=== PATIENT | female | born 1990 | race Caucasian/White ===

== ENCOUNTER 2017-02-20 14:33 | Outpatient (CLI) | payer OTHER | END 2017-02-20 15:08 | disposition home or self-care (01) | LOC: TRG 14:33 → EDSTATUS 14:34 → TRG 15:08 | PROVIDERS: ATTEND Obstetrics & Gynecology | DX: O36.0130 Maternal care for anti-D [Rh] antibodies, third trimester, not applicable or unspecified (principal); Z3A.30 30 weeks gestation of pregnancy | CPT/HCPCS: 86850; 86900; 86901; 96372; J2790 ==

== ENCOUNTER 2017-03-02 22:16 | Outpatient (CLI) | payer OTHER ==
[2017-03-02 23:03] VITALS: BP 96/55
[2017-03-02] MEDS ORDERED: LACTATED RINGERS 1,000 ML IV ONE (23:19)
[2017-03-03 00:03] LABS: Bilirubin,Urine SM (Negative); Blood,Urine NEG (Negative); Color,Urine Amber (Yellow); Mucus,Urine 3+ /HPF; Nitrite,Urine NEG (Negative)
[2017-03-03 00:09] LABS: Amphetamine Screen,Urine PRESUMPTIVE NEGATIVE; Benzodiazepines Screen,Urine PRESUMPTIVE NEGATIVE; Cocaine Screen,Urine PRESUMPTIVE NEGATIVE; Methadone Screen,Urine PRESUMPTIVE NEGATIVE; Opiate Screen,Urine PRESUMPTIVE NEGATIVE
[2017-03-03 00:20] LABS: Ictotest,Urine Negative (Negative)
[2017-03-03 00:23] LABS: Cannabinoid Screen,Urine PRESUMPTIVE POSITIVE
[2017-03-03] MEDS ORDERED: ROBITUSSIN PO PRN (00:30)
== END 2017-03-03 01:06 | disposition home or self-care (01) ==
LOC: TRG 22:16
PROVIDERS: ATTEND Obstetrics & Gynecology
DX: O26.893 Other specified pregnancy related conditions, third trimester (principal); J11.1 Influenza due to unidentified influenza virus with other respiratory manifestations; R10.9 Unspecified abdominal pain; Z3A.31 31 weeks gestation of pregnancy; Z87.891 Personal history of nicotine dependence
CPT/HCPCS: 59025; 80307; 81001; 96360; 96361; J7120

== ENCOUNTER 2017-05-01 19:19 | Inpatient (IN) | payer OTHER ==
[2017-05-01] MEDS ORDERED: PITOCin/NS 20 UNIT/1000ML DRIP 20,000 MILLIUNITS/1,000 ML BAG IV ONE (20:17)
--- NOTE | 2017-05-01 20:19 | History and Physical Report ---
History of Present Illness Date of examination: 05/01/17 Date of admission: 05/01/17 20:08 Chief complaint: Painful contractions History of present illness: 26-year-old at 40+ weeks' gestation presents in active labor, she is a [facility] patient. course complicated by Rh- status, she is GBS negative as well. Triage, patient is ~ 7 cm dilated with bulging membranes Past History Past Medical History: no pertinent history Past Surgical History: no surgical history FLORIST History: denies: chlamydia, gonorrhea, hepatitis B, hepatitis C, herpes, HIV , syphilis, trichomonas Social history: single, smoking, full code. denies: alcohol abuse, prescription drug abuse, IV drug use - Obstetrical History Expected Date of Delivery: 04/29/17 Actual Gestation: 40 Week(s) 2 Day(s) : 2 Para: 1 Medications and Allergies Allergies Allergy/AdvReac Type Severity Reaction Status Date / Time Penicillins AdvReac Unknown Verified 07/25/15 22:30 Home Medications Medication Instructions Recorded Confirmed Last Taken Type Pnv No.95/Ferrous Fum/Folic AC 1 each PO DAILY 07/25/15 05/01/17 1 Day Ago History [ [place]] ~04/30/17 Active Meds: Active Medications Parenteral Electrolytes (Normosol-R Ph 7.4) 1,000 mls @ 125 mls/hr IV DIRECT IRENE Review of Systems Constitutional: no fever, no chills, no anorexia, no fatigue, no weakness Eyes: no blurred vision, no discharge, no photophobia Cardiovascular: no chest pain, no lightheadedness, no shortness of breath, no dyspnea on exertion, no high blood pressure Respiratory: no cough, no shortness of breath, no dyspnea on exertion Gastrointestinal: no abdominal pain, no nausea, no vomiting, no heartburn, no indigestion Genitourinary: no vaginal bleeding, no vaginal discharge - Vital Signs Vital signs: Vital Signs Pulse BP Pulse Ox 95 H 119/71 96 05/01/17 19:34 05/01/17 19:34 05/01/17 19:34 Temp Pulse Resp BP Pulse Ox 98.4 F 81 20 119/71 98 05/01/17 19:37 05/01/17 20:04 05/01/17 19:37 05/01/17 19:34 05/01/17 20:04 - Physical Exam Cardiovascular: Regular rate, Normal S1, Normal S2 Abdomen: Positive: normal appearance, soft. Negative: tenderness, guarding Genitourinary (Female): Positive: normal external genitalia Uterus: Positive: enlarged (EFW ~ 3400). Negative: tender Extremities: Positive: normal - Obstetrical FHR: category 1 Cervical Dilatation: 7 Cervical Effacement Percentage: 100 station: -1 Results All other labs normal. Assessment and Plan A: 26-year-old at 40+2 weeks in active labor -Cat 1 tracing P: -Admit -Routine labs -Epidural prn -Expectant mgt -Anticipate - Patient Problems (1) 40 weeks gestation of Current Visit: Yes Status: Acute (2) Active labor at term Current Visit: Yes Status: Acute
[2017-05-01] MEDS ORDERED: ePHEDrine SULFATE IV PRN (20:20)
[2017-05-01] MEDS ORDERED: XYLOCAINE 2% INFILTRATI ONE (20:20)
[2017-05-01] MEDS ORDERED: MINERAL OIL PO PRN (20:20)
[2017-05-01] MEDS ORDERED: ZOFRAN IV PRN ×2 (20:20→21:23)
[2017-05-01] MEDS ORDERED: BRETHINE IVP PRN (20:20)
[2017-05-01] MEDS ORDERED: BRETHINE SUB-Q PRN (20:20)
[2017-05-01 20:23] LABS: Hematocrit 39.3 % (30.3-42.9); Mean Corpuscular HGB Conc 33 % (30-34); Mean Corpuscular Hemoglobin 30 pg (28-32); Mean Corpuscular Volume 91 fl (79-97); Platelet Count 180 K/mm3 (140-440); Red Blood Count 4.33 M/mm3 (3.65-5.03); Red Cell Distribution Width 14.4 % (13.2-15.2)
[2017-05-01] MEDS ORDERED: SUBLIMAZE IV PRN (20:30)
[2017-05-01] MEDS ORDERED: PITOCin/NS 30 UNIT/500ML 30 UNITS/500 ML BAG IV SCH ×2 (21:00)
[2017-05-01] MEDS ORDERED: NORMOSOL-R PH 7.4 1,000 ML IV SCH ×2 (21:00)
[2017-05-01] MEDS ORDERED: PITOCin/NS 20 UNIT/1000ML DRIP 20 UNITS/1,000 ML BAG IV SCH ×2 (21:00→22:00)
[2017-05-01] MEDS ORDERED: TUCKS PAD TP PRN (21:23)
[2017-05-01] MEDS ORDERED: PHENERGAN PO PRN (21:23)
[2017-05-01] MEDS ORDERED: DULCOLAX PR PRN (21:23)
[2017-05-01] MEDS ORDERED: BENADRYL PO PRN (21:23)
[2017-05-01] MEDS ORDERED: LANSINOH TP PRN (21:23)
[2017-05-01] MEDS ORDERED: MILK OF MAGNESIA PO PRN (21:23)
[2017-05-01] MEDS ORDERED: NORCO 5/325 PO PRN (21:23)
[2017-05-01] MEDS ORDERED: PHENERGAN PR PRN (21:23)
[2017-05-01] MEDS ORDERED: TYLENOL PO PRN (21:23)
--- NOTE | 2017-05-01 21:23 | Procedure Note ---
OB Delivery Note - Delivery Date of Delivery: 05/01/17 Surgeon: RAJINDER JUAREZ Estimated blood loss: 200cc - Vaginal Delivery presentation: vertex Delivery position: OA Intrapartum events: meconium, precipitous labor- <3hr Delivery induction: none Delivery monitor: external FHT, external uterine Route of delivery: Delivery placenta: spontaneous Delivery cord: 3 umbilical vessels Episiotomy: none Delivery laceration: other (bilateral periurethral not bleeding and not repaired ) Anesthesia: intravenous - Infant A at 1 minute: 8 at 5 minutes: 9 Infant Gender: Female (time of delivery 21:05, infant weight 5 lbs. 6 oz. or 2428 grams)
[2017-05-01] MEDS ORDERED: SENOKOT S PO SCH (22:00)
[2017-05-01] MEDS ORDERED: FEOSOL PO SCH (22:00)
[2017-05-01] MEDS ORDERED: COLACE PO SCH (22:00)
[2017-05-01] MEDS ORDERED: SODIUM CHLORIDE FLUSH SYRINGE 10 ML IV PRN (22:00)
[2017-05-01] MEDS: MOTRIN PO SCH (23:01)
[2017-05-02] MEDS: MOTRIN PO SCH ×3 (05:55→17:12)
[2017-05-02] MEDS ORDERED: BOOSTRIX IM ONE (06:00)
--- NOTE | 2017-05-02 09:50 | Progress Note ---
Assessment and Plan A: day 1, Stable and bottlefeeding P: Routine care Plan discharge tonight pending discharge Subjective - Subjective Date of service: 05/02/17 Principal diagnosis: Spontaneous labor, Patient reports: appetite normal, voiding normally, pain well controlled, flatus , ambulating normally [place]: doing well, nursing well (and bottlefeeding) Objective - Vital Signs Latest vital signs: Vital Signs Temp Pulse Resp BP BP Pulse Ox 05/02/17 08:49 98.6 F 67 18 97/57 98 05/02/17 04:00 98.6 F 77 16 102/77 05/02/17 00:00 98.6 F 68 16 114/78 05/01/17 22:35 98.7 F 80 16 107/71 104/71 05/01/17 22:19 80 95 05/01/17 22:17 71 118/76 05/01/17 22:15 68 20 108/75 05/01/17 22:14 74 108/75 97 05/01/17 22:09 84 99 05/01/17 22:04 82 97 05/01/17 22:02 86 20 114/81 114/81 05/01/17 21:59 84 98 05/01/17 21:54 82 99 05/01/17 21:50 80 86 05/01/17 21:49 82 97 05/01/17 21:44 86 97 05/01/17 21:39 84 92 05/01/17 21:35 99 H 92 05/01/17 21:34 98 H 96 05/01/17 21:32 68 20 104/72 104/72 95 05/01/17 21:29 90 97 05/01/17 21:24 80 98 05/01/17 21:19 92 H 98 05/01/17 21:17 98.1 F 90 20 121/64 121/64 99 05/01/17 21:14 110 H 98 05/01/17 20:04 81 98 05/01/17 20:03 94 H 90 05/01/17 19:59 95 H 98 05/01/17 19:55 100 H 94 05/01/17 19:54 100 H 95 05/01/17 19:49 92 H 99 05/01/17 19:44 85 100 05/01/17 19:43 91 H 92 05/01/17 19:39 100 H 99 05/01/17 19:37 98.4 F 78 20 05/01/17 19:34 95 H 119/71 96 Intake and Output 05/01/17 05/02/17 05/02/17 23:59 07:59 15:59 Intake Total 120 Output Total 600 250 Balance -600 -250 120 Intake: Oral 120 Output: Urine 600 250 Void 600 250 Other: Total, Intake Amount 120 Total, Output Amount 600 250 # Voids Void 1 1 Weight 59.421 kg Estimated Blood Loss 200 - Exam Breasts: Present: normal Cardiovascular: Present: Regular rate Lungs: Present: Clear to auscultation Abdomen: Present: normal appearance, soft, normal bowel sounds Vulva: both: normal Uterus: Present: normal, firm, fundal height at umbilicus Extremities: Present: normal Deep Tendon Reflex Grade: Normal +2 - Labs Labs: Abnormal lab results 05/01/17 Range/Units 19:50 WBC 12.7 H (4.5-11.0) K/mm3
--- NOTE | 2017-05-02 09:54 | Discharge Summary ---
Providers - Providers Date of Admission: 05/01/17 20:08 Date of discharge: 05/02/17 Attending physician: VADIM RO MD Primary care physician: VADIM RO MD Hospitalization Reason for admission: active labor, IUP at term Delivery: Episiotomy: none Laceration: other (bilateral periurethral lacerations, hemostatic, not repaired. ) Other procedures: none complications: none Discharge diagnosis: IUP at term delivered baby: female (5#6) Condition at discharge: Good Disposition: DC-01 TO HOME OR SELFCARE Plan - Discharge Medications Prescriptions: HYDROcodone/APAP 5-325 [Leoti 5/325] 1 each PO Q6HR PRN #7 tablet PRN Reason: Pain Ibuprofen [Motrin 600 MG tab] 600 mg PO Q8H PRN #30 tablet PRN Reason: Pain Multivitamin with Iron [Multivitamins with Iron] 1 each PO DAILY #30 tablet - Provider Discharge Summary Activity: routine, no sex for 6 weeks, no heavy lifting 4 weeks, no strenuous exercise Diet: routine Instructions: routine Additional instructions: [] Smoking cessation referral if applicable(refer to patient education folder for contact #) [] Refer to [facility] Booklet Call your doctor immediately for: * Fever > 100.5 * Heavy vaginal bleeding ( >1 pad per hour) * Severe persistent headache * Shortness of breath * Reddened, hot, painful area to leg or breast * Drainage or odor from incision. * Keep incision clean and dry at all times and follow doctor's instructions regarding bathing/showering - Follow up plan Follow up: SADIE RODRIGEZ CNM [Advanced Practice Nurse] - 6 Weeks
[2017-05-02] MEDS ORDERED: PRENATAL VITAMIN PO SCH (10:00)
[2017-05-02 10:07] LABS: Hematocrit 35.2 % (30.3-42.9); Hemoglobin 11.6 gm/dl (10.1-14.3)
[2017-05-02 19:13] VITALS: BP 111/68
[2017-05-02] MEDS ORDERED: M-M-R II VACCINE SUB-Q ONE (21:23)
== END 2017-05-02 21:29 | disposition home or self-care (01) | DRG 775 ==
LOC: TRG 19:19 → LD 20:08 → OB 22:51
PROVIDERS: ADMIT Obstetrics & Gynecology; ATTEND Obstetrics & Gynecology
PROC: 10E0XZZ Delivery of Products of Conception, External Approach (ICD-10-PCS; principal; 2017-05-01)
PROC: 3E0234Z Introduction of Serum, Toxoid and Vaccine into Muscle, Percutaneous Approach (ICD-10-PCS; 2017-05-02)
DX: O77.0 Labor and delivery complicated by meconium in amniotic fluid (principal); O62.3 Precipitate labor; Z37.0 Single live birth; Z3A.40 40 weeks gestation of pregnancy; Z88.0 Allergy status to penicillin; Z23 Encounter for immunization; O71.82 Other specified trauma to perineum and vulva
CPT/HCPCS: 36415; 85014; 85018; 85027; 86592; 86850; 86870; 86900; 86901; 90471; 90715; 99211; G0463; J2590; J3010

== ENCOUNTER 2018-06-29 11:38 | Emergency (ER) | payer SELFPAY ==
[2018-06-29] MEDS ORDERED: ZOFRAN IV ONE (12:03)
[2018-06-29] MEDS ORDERED: NACL 0.9% 1000 ML 1,000 ML IV ONE ×2 (12:03→13:01)
--- NOTE | 2018-06-29 12:10 | Emergency Department Report ---
ED General Adult HPI - General Chief complaint: Nausea/Vomiting/Diarrhea Stated complaint: WEAKNESS/NAUSEA Time Seen by Provider: 06/29/18 12:03 Source: EMS Mode of arrival: Stretcher Limitations: No Limitations - History of Present Illness Initial comments: Patient is 27 years old female with no significant past medical history. Patient brought to the emergency room via EMS after patient stating that she has been vomiting for the last 2 days. Patient is drowsy and not answering questions appropriately however vital signs stable with a blood pressure 125/75. - Related Data Home Medications Medication Instructions Recorded Confirmed Last Taken No Known Home Medications [No 06/29/18 06/29/18 Unknown Reported Home Medications] Allergies Allergy/AdvReac Type Severity Reaction Status Date / Time Penicillins AdvReac Unknown Verified 07/25/15 22:30 ED Review of Systems ROS: Stated complaint: WEAKNESS/NAUSEA Other details as noted in HPI Comment: All other systems reviewed and negative Constitutional: denies: chills, fever Respiratory: denies: shortness of breath, SOB with exertion, SOB at rest, wheezing Cardiovascular: denies: chest pain, palpitations Gastrointestinal: abdominal pain, nausea, vomiting ED Past Medical Hx - Past Medical History Hx Hypertension: No Hx Congestive Heart Failure: No Hx Diabetes: No Hx Deep Vein Thrombosis: No Hx Renal Disease: No Hx Sickle Cell Disease: No Hx Seizures: No Hx Asthma: No Hx COPD: No Hx HIV: No - Social History Smoking Status: Current Every Day Smoker - Medications Home Medications: Home Medications Medication Instructions Recorded Confirmed Last Taken Type No Known Home Medications [No 06/29/18 06/29/18 Unknown History Reported Home Medications] ED Physical Exam - General Limitations: No Limitations General appearance: obtunded - Head Head exam: Present: atraumatic, normocephalic, normal inspection - Eye Eye exam: Present: normal appearance - ENT ENT exam: Present: mucous membranes dry - Neck Neck exam: Present: normal inspection, full ROM. Absent: tenderness, meningismus, lymphadenopathy, thyromegaly - Respiratory Respiratory exam: Present: normal lung sounds bilaterally - Cardiovascular Cardiovascular Exam: Present: regular rate, normal rhythm, normal heart sounds - GI/Abdominal GI/Abdominal exam: Present: soft, normal bowel sounds. Absent: distended, tenderness, guarding, rebound, rigid - Extremities Exam Extremities exam: Present: normal inspection, full ROM, normal capillary refill. Absent: pedal edema, calf tenderness - Back Exam Back exam: Present: normal inspection, full ROM. Absent: CVA tenderness (R), CVA tenderness (L) - Neurological Exam Neurological exam: Present: alert, oriented X3 - Skin Skin exam: Present: warm, dry, normal color ED Course Vital Signs 06/29/18 06/29/18 12:40 14:30 Temperature 97.1 F L Pulse Rate 68 70 Respiratory 18 14 Rate Blood Pressure 102/61 98/60 [Left] O2 Sat by Pulse 100 100 Oximetry ED Medical Decision Making - Lab Data Result diagrams: 06/29/18 12:18 06/29/18 12:18 - Medical Decision Making Patient is 27 years old female with no significant past medical history. Patient brought to the emergency room via EMS after patient stating that she has been vomiting for the last 2 days. Patient is drowsy and not answering questions appropriately however vital signs stable with a blood pressure 125/75 Patient now is awake, alert oriented 3 in no acute distress. Patient stated that she is feeling much better. Patient stated that usually had an anxiety attack presented like this was vomiting he she had some stress today at her school. Patient advised to follow-up with [facility] for further management for anxiety. Critical care attestation.: If time is entered above; I have spent that time in minutes in the direct care of this critically ill patient, excluding procedure time. ED Disposition Clinical Impression: Vomiting, Anxiety attack Disposition: DC-01 TO HOME OR SELFCARE Is pt being admited?: No Condition: Stable Instructions: Acute Nausea and Vomiting (ED), Anxiety (ED) Referrals: LILLIAN DUMONT MD [Primary Care Provider] - 3-5 Days
[2018-06-29 12:50] LABS: Basophils % (Auto) 0.3 % (0.0-1.8); Eosinophils % (Auto) 0.2 % (0.0-4.3); Hematocrit 39.9 % (30.3-42.9); Hemoglobin 13.6 gm/dl (10.1-14.3); Lymphocytes # (Auto) 1.6 K/mm3 (1.2-5.4); Lymphocytes % (Auto) 16.4 % (13.4-35.0); Mean Corpuscular HGB Conc 34 % (30-34); Mean Corpuscular Volume 91 fl (79-97); Monocytes # (Auto) 0.5 K/mm3 (0.0-0.8); Monocytes % (Auto) 5.1 % (0.0-7.3); Platelet Count 187 K/mm3 (140-440); Red Blood Count 4.41 M/mm3 (3.65-5.03); Red Cell Distribution Width 12.5 % (13.2-15.2)
[2018-06-29 13:01] LABS: Alanine Aminotransferase 7 units/L (7-56); Albumin 4.3 g/dL (3.9-5); BUN/Creatinine Ratio 17; Blood Urea Nitrogen 12 mg/dL (7-17); Hemolysis Index 5
[2018-06-29 13:01] LABS: Amphetamine Screen,Urine PRESUMPTIVE NEGATIVE; Benzodiazepines Screen,Urine PRESUMPTIVE NEGATIVE; Cocaine Screen,Urine PRESUMPTIVE NEGATIVE; Methadone Screen,Urine PRESUMPTIVE NEGATIVE; Opiate Screen,Urine PRESUMPTIVE NEGATIVE
[2018-06-29 13:03] LABS: Bilirubin,Urine NEG (Negative); Blood,Urine NEG (Negative); Color,Urine Yellow (Yellow); Mucus,Urine 1+ /HPF; Protein,Urine <15 mg/dL mg/dL (Negative); Urobilinogen,Urine < 2.0 mg/dL (<2.0)
[2018-06-29 13:18] LABS: Cannabinoid Screen,Urine PRESUMPTIVE POSITIVE
[2018-06-29 14:44] VITALS: BP 98/60
== END 2018-06-29 15:42 | disposition home or self-care (01) ==
LOC: ED 11:38
DX: R11.10 Vomiting, unspecified (principal); F41.9 Anxiety disorder, unspecified; Z88.0 Allergy status to penicillin
CPT/HCPCS: 36415; 80053; 80307; 81001; 82140; 83690; 84703; 85025; 87040; 93005; 93010; 96361; 96374; 99284; G0480; J2405; J7030; 80320